=== PATIENT | female | born 1975 | race Hispanic/Latino ===

== ENCOUNTER → 2018-06-13 | Day surgery (SDC) | payer BC ==
[~2018-06-13] MED LIST: AMLODIPINE BESYL5 MG PO; LIDOCAINE HCL 2% LOCAL INJ 5 ML SDV VIAL INJ ONE; MIDAZOLAM HCL 2 MG/2 ML VIAL ONE; PROPOFOL IV EMULSION 10 MG/ML 20 ML VIAL ONE
== END | disposition home or self-care (01) ==
LOC: OR 06:16
PROVIDERS: ATTEND Internal Medicine Gastroenterology
DX: K21.9 Gastro-esophageal reflux disease without esophagitis (principal); K29.70 Gastritis, unspecified, without bleeding; K22.2 Esophageal obstruction; K20.9 Esophagitis, unspecified; K44.9 Diaphragmatic hernia without obstruction or gangrene; I10 Essential (primary) hypertension
CPT/HCPCS: 43239; 81025; J2001; J2250